=== PATIENT | male | born 1985 | race Caucasian/White ===

== ENCOUNTER 2021-09-22 20:55 | Emergency (ER) | payer BC ==
[2021-09-22 21:07] VITALS: BP 147/88; PULSE 100
[2021-09-22] MEDS ORDERED: Sodium Chloride 0.9% 10 ML Syringe FLUSH PRN (21:19)
[2021-09-22] MEDS ORDERED: cefTRIAXone 2 GM in Sodium Chloride 0.9% 100 ML IV ONE (21:20)
== END 2021-09-22 22:38 | disposition home or self-care (01) ==
LOC: JD.ED 20:55
DX: L03.115 Cellulitis of right lower limb (principal); Z91.041 Radiographic dye allergy status; Z79.899 Other long term (current) drug therapy
CPT/HCPCS: 36415; 80053; 83605; 85025; 86140; 96365; 99283; J0696; J3490